=== PATIENT | female | born 1955 | race Caucasian/White ===

== ENCOUNTER 2017-05-30 00:53 | Emergency (ER) | payer BC ==
[~2017-05-30] VITALS: Ht 157.5 cm; Wt 87.9 kg
[~2017-05-30 00:53] MED LIST: CIPROFLOXACIN500 M1 PO; COQ-10100 MG PO; CYCLOBENZAPRINE5 MG PO; DIAZEPAM2 MG PO; DOCUSATE SODIU100 MG PO; EXTRA STRENGTH500 M1 PO; FLEXERIL5 MG PO; FLOMAX0.4 MG PO; GABAPENTIN100 MG PO; HYDROCHLOROTHIA25 MG PO; LIPITOR40 MG PO; MICARDIS HCT1 TABLE2 PO; MICARDIS80 MG PO; OXYCODONE HCL5 MG PO; PREDNISONE5 MG PO; RELAFEN750 MG PO; SENNA8.6 MG PO; VITAMIN B-125000 MC1 PO; VITAMIN D35000 UNIT PO
[2017-05-30 01:42] LABS: HEMATOCRIT 40.1 % (36.0-46.0); HEMOGLOBIN 13.5 G/DL (11.9-15.5); RED BLOOD COUNT 4.38 M/uL (3.80-5.20); WHITE BLOOD COUNT 17.9 K/uL (4.1-10.2)
[2017-05-30 01:43] LABS: BASOPHIL (%) 0.4 % (0-1); BASOPHIL COUNT 0.1 K/uL (0-0.1); EOSINOPHIL (%) 0.5 % (0-5); EOSINOPHIL COUNT 0.1 K/uL (0-0.3); IMMATURE GRANULOCYTE (%) 0.4 % (0.0-0.7); LYMPHOCYTE (%) 6.6 % (15-42); LYMPHOCYTE COUNT 1.2 K/uL (1.0-2.8); MCH 30.8 PG (29.0-34.0); MCHC 33.7 G/DL (30.0-36.0); MCV 91.6 FL (83-99); MONOCYTE (%) 6.5 % (3-12); MONOCYTE COUNT 1.2 K/uL (0-0.8); NEUTROPHIL (%) 85.6 % (45-76); NEUTROPHIL COUNT 15.3 K/uL (1.8-6.4); PLATELET COUNT 378 K/uL (156-360); RBC DIS.WIDTH-CV 13.2 % (11.8-14.6); RBC DIS.WIDTH-SD 43.6 % (39-53)
[2017-05-30 01:55] LABS: ALBUMIN 4.5 g/dL (3.2-4.8); CHLORIDE 101 mEq/L (99-109); POTASSIUM 4.9 mEq/L (3.7-5.4); SODIUM 140 mEq/L (136-147)
[2017-05-30 01:57] LABS: GLUCOSE 129 mg/dL (70-99); TOTAL PROTEIN 7.7 g/dL (6.4-8.3)
[2017-05-30 01:59] LABS: TOTAL BILIRUBIN 0.5 mg/dL (0.0-1.0)
[2017-05-30 02:01] LABS: ALKALINE PHOSPHATASE 93 IU/L (3-129); CREATININE 1.2 mg/dL (0.6-1.3); GFR ESTIMATE (CALCULATED) 49 mL/min/
[2017-05-30 02:02] LABS: UREA NITROGEN (BUN) 21 mg/dL (9-23)
[2017-05-30 02:03] LABS: AST (GOT) 26 IU/L (2-34)
[2017-05-30 02:04] LABS: ALT (GPT) 25 IU/L (3-49); LIPASE 71 U/L (1.0-51.0)
[2017-05-30 02:07] LABS: TROP-I INTERPRETATION NEGATIVE; TROPONIN-I < 0.01 ng/mL (0.0-0.30)
[2017-05-30 03:14] VITALS: BP 109/63
== END 2017-05-30 03:14 | disposition home or self-care (01) ==
LOC: EME → EDBD 00:53 → EME 00:53
PROVIDERS: Emergency Medicine
DX: R11.2 Nausea with vomiting, unspecified (principal); R19.7 Diarrhea, unspecified; R55 Syncope and collapse; R53.1 Weakness; E78.5 Hyperlipidemia, unspecified; Z87.442 Personal history of urinary calculi
CPT/HCPCS: 80053; 83690; 84484; 85025; 93005; 99281; 99285; J7030